=== PATIENT | male | born 1985 | race Caucasian/White ===

== ENCOUNTER 2018-05-09 05:28 | Emergency (ER) | payer MEDICAID ==
[~2018-05-09] VITALS: Ht 170.2 cm; Wt 78.0 kg
[2018-05-09] MEDS ORDERED: IBUPROFEN 600MG TABLET PO ONE (07:30)
[2018-05-09 07:51] VITALS: BP 124/80
== END 2018-05-09 07:52 | disposition home or self-care (01) ==
LOC: ER 05:28
DX: K04.7 Periapical abscess without sinus (principal); F17.210 Nicotine dependence, cigarettes, uncomplicated
CPT/HCPCS: 99283; Z7610

== ENCOUNTER 2021-08-09 00:12 | Emergency (ER) | payer MEDICAID ==
[~2021-08-09] VITALS: Ht 170.2 cm; Wt 78.0 kg
[2021-08-09] MEDS ORDERED: ACETAMINOPHEN 325MG TABLET PO STA (01:28)
[2021-08-09] MEDS ORDERED: SODIUM CHLORIDE 0.9% 1,000 ML IV ONE (01:30)
[2021-08-09 01:57] LABS: BASOPHILS % 0.6 % (0.0-2.0); EOSINOPHILS % 0.1 % (0.0-5.0); HEMATOCRIT. 41.1 % (42.0-52.0); LYMPHOCYTES % 17.5 % (20.0-50.0); MEAN CORPUSCULAR HEMOGLOBIN 30.4 pg (28.0-32.0); MEAN CORPUSCULAR VOLUME 89.5 fL (80.0-94.0); MEAN PLATELET VOLUME 8.9 fl (7.4-10.4); MONOCYTES % 9.7 % (2.0-8.0); NEUTROPHILS % 72.1 % (40.0-76.0); PLATELET 110 x1000/uL (130-400); RED BLOOD CELL COUNT 4.59 mill/uL (4.7-6.1); RED CELL DISTRIBUTION WIDTH 12.5 % (11.6-14.6)
[2021-08-09 02:01] LABS: CHLORIDE 103 mEq/L (98-107)
[2021-08-09 02:37] LABS: CLARITY URINE CLEAR (CLEAR); COLOR URINE YELLOW (YELLOW); KETONES URINE 1+ (NEGATIVE); LEUKOCYTE ESTERASE URINE NEGATIVE (NEGATIVE); NITRITE URINE NEGATIVE (NEGATIVE); OCCULT BLOOD URINE NEGATIVE (NEGATIVE); PROTEIN URINE 1+ (NEGATIVE); SPECIFIC GRAVITY URINE 1.023 (1.005-1.030)
[2021-08-09 02:54] LABS: *AMPHETAMINES SCREEN URINE NEGATIVE (NEGATIVE); *BARBITURATES SCREEN URINE NEGATIVE (NEGATIVE); *BENZODIAZEPINES SCREEN URINE NEGATIVE (NEGATIVE); *COCAINE SCREEN URINE NEGATIVE (NEGATIVE)
[2021-08-09 02:55] LABS: CANNABINOID URINE SCREEN NEGATIVE (NEGATIVE); METHADONE URINE SCREEN NEGATIVE (NEGATIVE); OPIATES URINE SCREEN NEGATIVE (NEGATIVE); PHENCYCLIDINE URINE SCREEN NEGATIVE (NEGATIVE)
[2021-08-09] MEDS ORDERED: KETOROLAC 15MG/ML VIAL IV ONE (03:30)
[2021-08-09] MEDS ORDERED: IBUP-2029 MT (03:56)
[2021-08-09] MEDS ORDERED: ALBU6.7H9 INH (03:56)
[2021-08-09 04:18] VITALS: BP 98/48
== END 2021-08-09 04:32 | disposition home or self-care (01) ==
LOC: ER 00:12
DX: U07.1 COVID-19 (principal); B34.9 Viral infection, unspecified
CPT/HCPCS: 36415; 71045; 80053; 80305; 81003; 85025; 87426; 93005; 96374; 99285; J1885; J7030

== ENCOUNTER 2022-10-29 13:51 | Emergency (ER) | payer MEDICAID ==
[~2022-10-29] VITALS: Ht 170.2 cm; Wt 93.0 kg
[~2022-10-29 13:51] MED LIST: ALBU6.7H3 INH; IBUP-2029 MT
[2022-10-29] MEDS ORDERED: IBUPROFEN 400MG TABLET PO ONE (15:15)
[2022-10-29] MEDS ORDERED: IBUP-2028 MT (16:45)
[2022-10-29 17:40] VITALS: BP 147/88
== END 2022-10-29 17:40 | disposition home or self-care (01) ==
LOC: ER 14:12
DX: S06.0X9A Concussion with loss of consciousness of unspecified duration, initial encounter (principal); M79.661 Pain in right lower leg; S83.8X1A Sprain of other specified parts of right knee, initial encounter; V03.90XA Pedestrian on foot injured in collision with car, pick-up truck or van, unspecified whether traffic or nontraffic accident, initial encounter; Y93.89 Activity, other specified; Y92.9 Unspecified place or not applicable
CPT/HCPCS: 73560; 73590; 73610; 99284